=== PATIENT | female | born 1980 | race Caucasian/White ===

== ENCOUNTER 2018-02-15 23:18 | Inpatient (IN) | payer OTHER ==
--- NOTE | 2018-02-16 | Emergency Department Report ---
History of Present Illness - General Chief Complaint: Overdose Stated Complaint: OVERDOSE Time Seen by Provider: 02/15/18 23:49 Source: patient Mode of arrival: Stretcher Limitations: Altered Mental Status - History of Present Illness Initial Comments: 37 yo female brought by EMS to ER. found pt found unresponsive after taking approximately 3/4 bottle of motrin, 3/4 bottle of benadryl, strong odor of alcohol. Superfiicial cuts to left wrist. I spoke with who explained that he and his has had some marital problems over the last few weeks. When he was away from the home, the patient called him to inform him that she overdosed on medications. According to , she does not have a history of depression. She does take medications for migraine headache. Complaint: intentional overdose -: Sudden Intent: unwilling to say How Overdose Was Discovered: family/friend present - Related Data Allergies Allergy/AdvReac Type Severity Reaction Status Date / Time Unable to Assess Allergy Verified 02/15/18 23:35 ED Review of Systems ROS: Stated complaint: OVERDOSE Other details as noted in HPI Comment: Unobtainable due to pts medical conditions ED Past Medical Hx - Past Medical History Additional medical history: unknown - Surgical History Additional Surgical History: unknown - Social History Smoking Status: Unknown if ever smoked ED Physical Exam - General Limitations: Altered Mental Status General appearance: alert, in no apparent distress, other (will make eye contact , nonverbal, ) - Head Head exam: Present: atraumatic, normocephalic - Eye Eye exam: Present: PERRL, EOMI. Absent: scleral icterus, conjunctival injection Pupils: Present: normal accommodation - ENT ENT exam: Present: normal exam - Neck Neck exam: Present: normal inspection - Respiratory Respiratory exam: Present: normal lung sounds bilaterally. Absent: respiratory distress, wheezes, rales - Cardiovascular Cardiovascular Exam: Present: regular rate, normal rhythm, normal heart sounds. Absent: bradycardia, tachycardia - GI/Abdominal GI/Abdominal exam: Present: soft. Absent: distended, tenderness, guarding, rebound - Neurological Exam Neurological exam: Present: alert, other (nonverbal) - Psychiatric Psychiatric exam: Present: flat affect - Skin Skin exam: Present: warm, dry, other (superficial excoriations left wrist, 3 cm superficial laceration deep to subcutaneous tissue) ED Course Vital Signs 02/15/18 02/15/18 02/15/18 23:35 23:37 23:41 Temperature 98.0 F Pulse Rate 91 H 100 H Respiratory 26 H 25 H 14 Rate Blood Pressure 120/78 O2 Sat by Pulse 100 100 100 Oximetry ED Medical Decision Making - Lab Data Result diagrams: 02/15/18 23:45 02/15/18 23:45 Laboratory Results - last 24 hr 02/15/18 02/15/18 02/15/18 23:45 23:45 23:45 WBC RBC Hgb Hct MCV MCH MCHC RDW Plt Count Lymph % (Auto) [place] % (Auto) Eos % (Auto) Baso % (Auto) Lymph # [place] # Eos # Baso # Seg Neutrophils % Seg Neutrophils # Sodium 140 Potassium 3.2 L Chloride 101.9 Carbon Dioxide 24 Anion Gap 17 BUN 9 Creatinine 0.5 L Estimated GFR > 60 BUN/Creatinine Ratio 18 Glucose 173 H Calcium 8.5 HCG, Qual Urine Color Urine Turbidity Urine pH Ur Specific [place] Urine Protein Urine Glucose (UA) Urine Ketones Urine Blood Urine Nitrite Urine Bilirubin Urine Urobilinogen Ur Leukocyte Esterase Urine WBC (Auto) Urine RBC (Auto) U Epithel Cells (Auto) Urine Mucus Salicylates < 0.3 L Urine Opiates Screen Urine Methadone Screen Acetaminophen < 5.0 L Ur Barbiturates Screen Ur Phencyclidine Scrn Ur Amphetamines Screen U Benzodiazepines Scrn Urine Cocaine Screen U Marijuana (THC) Screen Drugs of Abuse Note Plasma/Serum Alcohol 02/15/18 02/15/18 02/15/18 23:45 23:45 23:45 WBC 8.1 RBC 4.15 Hgb 12.5 Hct 37.8 MCV 91 MCH 30 MCHC 33 RDW 14.4 Plt Count 294 Lymph % (Auto) 9.9 L [place] % (Auto) 3.1 Eos % (Auto) 0.2 Baso % (Auto) 0.4 Lymph # 0.8 L [place] # 0.3 Eos # 0.0 Baso # 0.0 Seg Neutrophils % 86.4 H Seg Neutrophils # 7.0 Sodium Potassium Chloride Carbon Dioxide Anion Gap BUN Creatinine Estimated GFR BUN/Creatinine Ratio Glucose Calcium HCG, Qual Negative Urine Color Urine Turbidity Urine pH Ur Specific [place] Urine Protein Urine Glucose (UA) Urine Ketones Urine Blood Urine Nitrite Urine Bilirubin Urine Urobilinogen Ur Leukocyte Esterase Urine WBC (Auto) Urine RBC (Auto) U Epithel Cells (Auto) Urine Mucus Salicylates Urine Opiates Screen Urine Methadone Screen Acetaminophen Ur Barbiturates Screen Ur Phencyclidine Scrn Ur Amphetamines Screen U Benzodiazepines Scrn Urine Cocaine Screen U Marijuana (THC) Screen Drugs of Abuse Note Plasma/Serum Alcohol 0.04 02/15/18 02/15/18 23:47 23:47 WBC RBC Hgb Hct MCV MCH MCHC RDW Plt Count Lymph % (Auto) [place] % (Auto) Eos % (Auto) Baso % (Auto) Lymph # [place] # Eos # Baso # Seg Neutrophils % Seg Neutrophils # Sodium Potassium Chloride Carbon Dioxide Anion Gap BUN Creatinine Estimated GFR BUN/Creatinine Ratio Glucose Calcium HCG, Qual Urine Color Yellow Urine Turbidity Clear Urine pH 6.0 Ur Specific [place] 1.012 Urine Protein <15 mg/dl Urine Glucose (UA) 150 Urine Ketones Neg Urine Blood Neg Urine Nitrite Neg Urine Bilirubin Neg Urine Urobilinogen < 2.0 Ur Leukocyte Esterase Neg Urine WBC (Auto) 1.0 Urine RBC (Auto) 4.0 U Epithel Cells (Auto) < 1.0 Urine Mucus Few Salicylates Urine Opiates Screen Presumptive negative Urine Methadone Screen Presumptive negative Acetaminophen Ur Barbiturates Screen Presumptive negative Ur Phencyclidine Scrn Presumptive negative Ur Amphetamines Screen Presumptive negative U Benzodiazepines Scrn Presumptive negative Urine Cocaine Screen Presumptive negative U Marijuana (THC) Screen Presumptive negative Drugs of Abuse Note Disclamer Plasma/Serum Alcohol - EKG Data 02/16/18 00:12 Time obtained 0007 Sinus tachycardia rate 100 beats a minute normal axis prolonged QT interval no signs of ischemia - Medical Decision Making Intentional Overdose of Motrin, Benadryl I spoke with [place] [facility] who recommended supportive care. Peak effect of Benadryl expected at 4 hours. GI distress and metabolic acidosis are complications of Ibuprofen ingestion. 1013 instituted with appropriate precautions. Superficial laceration did not need suture repair. Nurse provided wound care and bandage. Tetanus booster provided After 3 hours of observation, Mrs. Doyle began exhibit signs of severe diphenhydramine toxicity. She will ambulate with nurse's assistance. She has tachycardia, confabulation. I have asked our hospitalist to admit. She is admitted to the ICU. I also spoke with the marketing research coordinator human services professional. Due to initial altered mental status, patient was unable to tolerate activated charcoal. I will provide chemical restraint with lorazaepam. Cardiac monitoring is necessary with prolonged QTC Critical Care Time: Yes Critical care time in (mins) excluding proc time.: 55 Critical care attestation.: If time is entered above; I have spent that time in minutes in the direct care of this critically ill patient, excluding procedure time. ED Disposition Clinical Impression: Intentional drug overdose, Diphenhydramine overdose, Ibuprofen overdose, Acute encephalopathy Disposition: OP ADMIT IP TO THIS HOSP Is pt being admited?: Yes Does the pt Need Aspirin: No Condition: Stable Time of Disposition: 02:45
[2018-02-16 00:04] LABS: Basophils % (Auto) 0.4 % (0.0-1.8); Eosinophils % (Auto) 0.2 % (0.0-4.3); Hematocrit 37.8 % (30.3-42.9); Hemoglobin 12.5 gm/dl (10.1-14.3); Lymphocytes # (Auto) 0.8 K/mm3 (1.2-5.4); Lymphocytes % (Auto) 9.9 % (13.4-35.0); Mean Corpuscular HGB Conc 33 % (30-34); Mean Corpuscular Hemoglobin 30 pg (28-32); Mean Corpuscular Volume 91 fl (79-97); Monocytes # (Auto) 0.3 K/mm3 (0.0-0.8); Monocytes % (Auto) 3.1 % (0.0-7.3); Platelet Count 294 K/mm3 (140-440); Red Blood Count 4.15 M/mm3 (3.65-5.03); Red Cell Distribution Width 14.4 % (13.2-15.2)
[2018-02-16] MEDS ORDERED: NACL 0.9% 1000 ML 1,000 ML IV ONE (00:04)
[2018-02-16] MEDS ORDERED: BOOSTRIX IM ONE (00:04)
[2018-02-16 00:23] LABS: BUN/Creatinine Ratio 18; Blood Urea Nitrogen 9 mg/dL (7-17); Calcium 8.5 mg/dL (8.4-10.2); Hemolysis Index 2
[2018-02-16 00:31] LABS: Bilirubin,Urine NEG (Negative); Blood,Urine NEG (Negative); Color,Urine Yellow (Yellow); Mucus,Urine FEW /HPF; Protein,Urine <15 mg/dL mg/dL (Negative); Urobilinogen,Urine < 2.0 mg/dL (<2.0)
[2018-02-16 00:40] LABS: Amphetamine Screen,Urine PRESUMPTIVE NEGATIVE; Benzodiazepines Screen,Urine PRESUMPTIVE NEGATIVE; Cannabinoid Screen,Urine PRESUMPTIVE NEGATIVE; Cocaine Screen,Urine PRESUMPTIVE NEGATIVE; Methadone Screen,Urine PRESUMPTIVE NEGATIVE; Opiate Screen,Urine PRESUMPTIVE NEGATIVE
--- NOTE | 2018-02-16 01:26 | Cat Scan Report ---
FINAL REPORT PROCEDURE: CT HEAD/BRAIN WO CON TECHNIQUE: Computerized tomography of the head was performed without contrast material. HISTORY: altered mental status COMPARISON: No prior studies are available for comparison. FINDINGS: Skull and scalp: Normal. Paranasal sinuses: Normal. Ventricles and subarachnoid spaces: Normal. Cerebrum: No evidence of hemorrhage, acute infarction or mass . Cerebellum and brainstem: No evidence of hemorrhage, acute infarction or mass. Vasculature: Normal. Comments: None. IMPRESSION: Normal Examination
[2018-02-16] MEDS ORDERED: TRIPLE ANTIBIOTIC TP ONE ×2 (02:11→02:22)
[2018-02-16] MEDS ORDERED: ATIVAN IV ONE (02:45)
[2018-02-16] MEDS ORDERED: K-DUR PO ONE (03:34)
[2018-02-16] MEDS ORDERED: SODIUM CHLORIDE FLUSH SYRINGE 10 ML IV PRN (03:49)
--- NOTE | 2018-02-16 04:06 | History and Physical Report ---
History of Present Illness Date of examination: 02/16/18 Chief complaint: Patient overdosed on Motrin and Benadryl History of present illness: 37-year-old [id number] Georgian female brought in to the emergency department after she was found unresponsive at home Patient is psychotic, awake and alert, unable to get any history even in the presence of a route rider. Most of the history is obtained from review of ED note. No family member in the room. Patient will be admitted to ICU under 1013 due to intentional drug overdose and her present psychotic condition. Apparently patient does not have any history of depression but has been having marital problems and she intentionally ingested to full bottle of Benadryl and Motrin. Past History Past Medical History: No medical history Past Surgical History: Other (not known) Social history: smoking Family history: other (unable to obtain at this time) Medications and Allergies Allergies Allergy/AdvReac Type Severity Reaction Status Date / Time Unable to Assess Allergy Verified 02/15/18 23:35 Active Meds: Active Medications Heparin Sodium (Porcine) (Heparin) 5,000 unit SUB-Q Q8HR DEVON Dextrose/Sodium Chloride (D5ns) 1,000 mls @ 75 mls/hr IV DIRECT DEVON Pantoprazole Sodium (Protonix) 40 mg PO DAILY DEVON Sodium Chloride (Sodium Chloride Flush Syringe 10 Ml) 10 ml IV BID DEVON Sodium Chloride (Sodium Chloride Flush Syringe 10 Ml) 10 ml IV PRN PRN PRN Reason: LINE FLUSH Review of Systems ROS unobtainable: due to mental status All systems: negative Exam - Constitutional Vitals: Temp Pulse Resp BP Pulse Ox 98.0 F 100 H 14 120/78 100 02/15/18 23:35 02/15/18 23:37 02/15/18 23:41 02/15/18 23:35 02/15/18 23:41 General appearance: Present: no acute distress, well-nourished, other (confused and psychotic) - EENT Eyes: Present: PERRL, EOM intact ENT: hearing intact - Neck Neck: Present: supple, normal ROM. Absent: masses or JVD - Respiratory Respiratory effort: normal Respiratory: bilateral: CTA - Cardiovascular Rhythm: regular Heart Sounds: Present: S1 & S2 - Extremities Extremities: No edema Peripheral Pulses: within normal limits - Abdominal General gastrointestinal: Present: soft, non-tender. Absent: hepatomegaly, splenomegaly - Rectal Rectal Exam: deferred - Integumentary Integumentary: Present: clear - Psychiatric Psychiatric: other (psychotic, poor insight and judgment) - Neurologic Neurologic: no focal deficits, moves all extremities Results - Labs CBC & Chem 7: 02/15/18 23:45 02/15/18 23:45 Labs: Abnormal lab results 02/15/18 02/15/18 02/15/18 Range/Units 23:45 23:45 23:45 Lymph % (Auto) (13.4-35.0) % Lymph # (1.2-5.4) K/mm3 Seg Neutrophils % (40.0-70.0) % Potassium 3.2 L (3.6-5.0) mmol/L Creatinine 0.5 L (0.7-1.2) mg/dL Glucose 173 H (65-100) mg/dL Salicylates < 0.3 L (2.8-20.0) mg/dL Acetaminophen < 5.0 L (10.0-30.0) ug/mL 02/15/18 Range/Units 23:45 Lymph % (Auto) 9.9 L (13.4-35.0) % Lymph # 0.8 L (1.2-5.4) K/mm3 Seg Neutrophils % 86.4 H (40.0-70.0) % Potassium (3.6-5.0) mmol/L Creatinine (0.7-1.2) mg/dL Glucose (65-100) mg/dL Salicylates (2.8-20.0) mg/dL Acetaminophen (10.0-30.0) ug/mL Assessment and Plan - Patient Problems (1) Intentional drug overdose Current Visit: Yes Status: Acute Qualifiers: Encounter type: initial encounter Qualified Code(s): T50.902A - Poisoning by unspecified drugs, medicaments and biological substances, intentional self- harm, initial encounter Plan to address problem: Intentional overdose with Benadryl and Motrin Supportive care mental health consult Patient is under 1013 (2) Hypokalemia Current Visit: Yes Status: Acute Plan to address problem: Potassium supplements and monitor serum electrolytes (3) Hyperglycemia Current Visit: Yes Status: Acute Plan to address problem: There is no history of diabetes Will check A1c Start on Accu-Cheks before meals and at bedtime if A1c is abnormal (4) Acute encephalopathy Current Visit: Yes Status: Acute Plan to address problem: 2/2 Delirium Secondary to overdose of Benadryl and Motrin Supportive care and close monitoring in ICU setting
[2018-02-16] MEDS: D5NS 1,000 ML IV SCH (06:06)
[2018-02-16] MEDS: HEPARIN SUB-Q SCH ×3 (06:08→22:59)
--- NOTE | 2018-02-16 10:09 | Consultation ---
History of Present Illness - Reason for Consult Consult date: 02/16/18 Overdose, Suicide Attempt Requesting physician: KLEBER ORELLANA - History of Present Illness 37 y/o [place]an female, non ukrainian speaking admitted via the Ed after being found unresponsive. Patient intentionally ingested an unknown amount of benadryl and motrin. Per the who speaks some Bruneian as the bedside, this was an intentional attempt to harm herself. They have been having marital problems for about 1 week. She has never done this before. In the ED, she was hostile and combative, confused at times. She was tachycardic but other vitals were stable. Transitioned to ICU for further monitoring. She is a 1013. Past History Past Medical History: No medical history, other (per chart, some depression) Past Surgical History: No surgical history, Other (not known) Social history: smoking Medications and Allergies Allergies Allergy/AdvReac Type Severity Reaction Status Date / Time Unable to Assess Allergy Verified 02/15/18 23:35 Active Meds: Active Medications Heparin Sodium (Porcine) (Heparin) 5,000 unit SUB-Q Q8HR DEVON Last Admin: 02/16/18 06:08 Dose: 5,000 unit Dextrose/Sodium Chloride (D5ns) 1,000 mls @ 75 mls/hr IV DIRECT DEVON Last Admin: 02/16/18 06:06 Dose: 75 mls/hr Pantoprazole Sodium (Protonix) 40 mg PO DAILY DEVON Sodium Chloride (Sodium Chloride Flush Syringe 10 Ml) 10 ml IV BID DEVON Sodium Chloride (Sodium Chloride Flush Syringe 10 Ml) 10 ml IV PRN PRN PRN Reason: LINE FLUSH Review of Systems All systems: negative Exam - Constitutional Vitals: Temp Pulse Resp BP Pulse Ox 98.0 F 87 23 112/73 96 02/16/18 08:00 02/16/18 09:21 02/16/18 09:21 02/16/18 09:21 02/16/18 07:31 General appearance: Present: no acute distress, well-nourished - EENT Eyes: Present: PERRL, EOM intact ENT: hearing intact, clear oral mucosa - Neck Neck: Present: supple, normal ROM - Respiratory Respiratory effort: normal Respiratory: bilateral: CTA - Cardiovascular Rhythm: regular Heart Sounds: Present: S1 & S2 - Extremities Extremities: no ischemia - Abdominal General gastrointestinal: Present: soft, non-tender, normal bowel sounds Female genitourinary: Present: deferred - Rectal Rectal Exam: deferred - Integumentary Integumentary: Present: clear, warm, dry - Musculoskeletal Musculoskeletal: strength equal bilaterally - Neurologic Neurologic: CNII-XII intact Results - Labs CBC & Chem 7: 02/15/18 23:45 02/15/18 23:45 Labs: Abnormal lab results 02/15/18 02/15/18 02/15/18 Range/Units 23:45 23:45 23:45 Lymph % (Auto) (13.4-35.0) % Lymph # (1.2-5.4) K/mm3 Seg Neutrophils % (40.0-70.0) % Potassium 3.2 L (3.6-5.0) mmol/L Creatinine 0.5 L (0.7-1.2) mg/dL Glucose 173 H (65-100) mg/dL Salicylates < 0.3 L (2.8-20.0) mg/dL Acetaminophen < 5.0 L (10.0-30.0) ug/mL 02/15/18 Range/Units 23:45 Lymph % (Auto) 9.9 L (13.4-35.0) % Lymph # 0.8 L (1.2-5.4) K/mm3 Seg Neutrophils % 86.4 H (40.0-70.0) % Potassium (3.6-5.0) mmol/L Creatinine (0.7-1.2) mg/dL Glucose (65-100) mg/dL Salicylates (2.8-20.0) mg/dL Acetaminophen (10.0-30.0) ug/mL - Imaging and Cardiology CT Scan - head: report reviewed Assessment and Plan 37 y/o female admitted with suicide attempt from overdosing on benadryl and motrin. 1. IV hydration 2. Agree with 1013 3. Psych consult with language line 4. Monitor electrolytes and replace as needed 5. Can likely transfer to floor with tele. Benadryl has a long half variable half-life, without knowing the strength and the amount, tough to determine when she may clear it. All other labs or normal so should metabolize normally. Given cardiac effects, suggest telemetry monitoring while on floor with sitter close. 6. IF QTc is normal, would use antipsychotics for agitation and not benzo therapy.
[2018-02-16 11:03] LABS: BUN/Creatinine Ratio 13; Blood Urea Nitrogen 5 mg/dL (7-17); Calcium 8.5 mg/dL (8.4-10.2); Hemolysis Index 4
[2018-02-16] MEDS: PROTONIX PO SCH (12:00)
[2018-02-16] MEDS: SODIUM CHLORIDE FLUSH SYRINGE 10 ML IV SCH ×2 (14:34→22:59)
--- NOTE | 2018-02-16 20:00 | Progress Note ---
Assessment and Plan Assessment and plan: 37-year-old [id number] Bel[place]ian female brought in to the emergency department after she was found unresponsive at home Patient is psychotic, awake and alert, unable to get any history even in the presence of a teaching artist. Most of the history is obtained from review of ED note. No family member in the room. Patient will be admitted to ICU under 1013 due to intentional drug overdose and her present psychotic condition. Apparently patient does not have any history of depression but has been having marital problems and she intentionally ingested to full bottle of Benadryl and Motrin. Past History Past Medical History: No medical history Intentional drug overdose/ suicide attempt mental health consult Patient is under 1013 Hypokalemia, repleted Hyperglycemia due to stress reaction, a1c 5.6, DM ruled out Acute Toxic encephalopathy due to drug OD, now resolved major depression meds per MH Patient is medically optimized for transfer to inpatient psych hospital. History Interval history: Review of systems Constitutional: No fevers, no malaise, no joint pains CVS: No chest pain, no orthopnea, no dyspnea on exertion, no pedal edema GI: No abdominal pain, no diarrhea, no vomiting, no constipation Respiratory: No shortness of breath, no wheezing, no coughing Hospitalist Physical - Physical exam Narrative exam: General.: Appears well, no distress, nontoxic HEENT: Moist mucous membranes, extraocular muscles intact, no lymphadenopathy Neck: supple Cardiac: S1-S2 heard Lungs: clear to auscultation bilaterally Abdomen: soft , nontender, nondistended, bowel sounds positive Extremities: no edema clubbing or cyanosis Skin: no rash or lesions Neurologic: no gross focal deficits Psych: appropriate behavior, appropriate mood, corporative, judgment intact - Constitutional Vitals: Temp Pulse Resp BP Pulse Ox 98.6 F 76 21 109/71 99 02/16/18 16:00 02/16/18 15:11 02/16/18 19:34 02/16/18 19:34 02/16/18 19:34 General appearance: Present: no acute distress, well-nourished Results - Labs CBC & Chem 7: 02/17/18 07:59 02/17/18 07:59 Labs: Laboratory Last Values WBC 8.1 K/mm3 (4.5-11.0) 02/15/18 23:45 RBC 4.15 M/mm3 (3.65-5.03) 02/15/18 23:45 Hgb 12.5 gm/dl (10.1-14.3) 02/15/18 23:45 Hct 37.8 % (30.3-42.9) 02/15/18 23:45 MCV 91 fl (79-97) 02/15/18 23:45 MCH 30 pg (28-32) 02/15/18 23:45 MCHC 33 % (30-34) 02/15/18 23:45 RDW 14.4 % (13.2-15.2) 02/15/18 23:45 Plt Count 294 K/mm3 (140-440) 02/15/18 23:45 Lymph % (Auto) 9.9 % (13.4-35.0) L 02/15/18 23:45 Clinch % (Auto) 3.1 % (0.0-7.3) 02/15/18 23:45 Eos % (Auto) 0.2 % (0.0-4.3) 02/15/18 23:45 Baso % (Auto) 0.4 % (0.0-1.8) 02/15/18 23:45 Lymph # 0.8 K/mm3 (1.2-5.4) L 02/15/18 23:45 Clinch # 0.3 K/mm3 (0.0-0.8) 02/15/18 23:45 Eos # 0.0 K/mm3 (0.0-0.4) 02/15/18 23:45 Baso # 0.0 K/mm3 (0.0-0.1) 02/15/18 23:45 Seg Neutrophils % 86.4 % (40.0-70.0) H 02/15/18 23:45 Seg Neutrophils # 7.0 K/mm3 (1.8-7.7) 02/15/18 23:45 Sodium 145 mmol/L (137-145) 02/16/18 10:19 Potassium 3.8 mmol/L (3.6-5.0) 02/16/18 10:19 Chloride 105.5 mmol/L (98-107) 02/16/18 10:19 Carbon Dioxide 23 mmol/L (22-30) 02/16/18 10:19 Anion Gap 20 mmol/L 02/16/18 10:19 BUN 5 mg/dL (7-17) L 02/16/18 10:19 Creatinine 0.4 mg/dL (0.7-1.2) L 02/16/18 10:19 Estimated GFR > 60 ml/min 02/16/18 10:19 BUN/Creatinine Ratio 13 % 02/16/18 10:19 Glucose 94 mg/dL (65-100) 02/16/18 10:19 Hemoglobin A1c 5.6 % (4-6) 02/16/18 10:19 Calcium 8.5 mg/dL (8.4-10.2) 02/16/18 10:19 HCG, Qual Negative (Negative) 02/15/18 23:45 Urine Color Yellow (Yellow) 02/15/18 23:47 Urine Turbidity Clear (Clear) 02/15/18 23:47 Urine pH 6.0 (5.0-7.0) 02/15/18 23:47 Ur Specific [place] 1.012 (1.003-1.030) 02/15/18 23:47 Urine Protein <15 mg/dl mg/dL (Negative) 02/15/18 23:47 Urine Glucose (UA) 150 mg/dL (Negative) 02/15/18 23:47 Urine Ketones Neg mg/dL (Negative) 02/15/18 23:47 Urine Blood Neg (Negative) 02/15/18 23:47 Urine Nitrite Neg (Negative) 02/15/18 23:47 Urine Bilirubin Neg (Negative) 02/15/18 23:47 Urine Urobilinogen < 2.0 mg/dL (<2.0) 02/15/18 23:47 Ur Leukocyte Esterase Neg (Negative) 02/15/18 23:47 Urine WBC (Auto) 1.0 /HPF (0.0-6.0) 02/15/18 23:47 Urine RBC (Auto) 4.0 /HPF (0.0-6.0) 02/15/18 23:47 U Epithel Cells (Auto) < 1.0 /HPF (0-13.0) 02/15/18 23:47 Urine Mucus Few /HPF 02/15/18 23:47 Salicylates < 0.3 mg/dL (2.8-20.0) L 02/15/18 23:45 Urine Opiates Screen Presumptive negative 02/15/18 23:47 Urine Methadone Screen Presumptive negative 02/15/18 23:47 Acetaminophen < 5.0 ug/mL (10.0-30.0) L 02/15/18 23:45 Ur Barbiturates Screen Presumptive negative 02/15/18 23:47 Ur Phencyclidine Scrn Presumptive negative 02/15/18 23:47 Ur Amphetamines Screen Presumptive negative 02/15/18 23:47 U Benzodiazepines Scrn Presumptive negative 02/15/18 23:47 Urine Cocaine Screen Presumptive negative 02/15/18 23:47 U Marijuana (THC) Screen Presumptive negative 02/15/18 23:47 Drugs of Abuse Note Disclamer 02/15/18 23:47 Plasma/Serum Alcohol 0.04 % (0-0.07) 02/15/18 23:45
--- NOTE | 2018-02-16 23:10 | Consultation ---
History of Present Illness - Reason for Consult Consult date: 02/16/18 Reason for consult: overdose - Chief Complaint Chief complaint: "I took a lot of pills." - History of Present Psychiatric Illness 37 yo [place] female seen in the ICU. The language line was used with full time staff interpreter number [id number]. Her was not present during the interview. Per the record, her found her found unresponsive after taking approximately 3/4 bottle of motrin, 3/4 bottle of benadryl, and strong odor of alcohol. She also has superficial cuts to left wrist which did not require suturing. She reports that 3 weeks ago, her cheated on her with her best friend. She states they have been arguing since then. She does not have family in the [place]. She speaks minimal sri lankan. Her 13 and 14 year old children are in [place] with her mother. She denies a history of any mental health diagnosis. She states she has never been on meds for mental health. She mentioned hesitancy about going to a counselor. She states she was told to see a psychologist because of her past, but she does not want to discuss anything in further detail. She admits to the suicide attempt. She denies homicidal ideation. She denies hallucinations currently, but was exhibiting signs of visual hallucinations following the overdose. Poison control has been involved in her care. Medications and Allergies Allergies Allergy/AdvReac Type Severity Reaction Status Date / Time Unable to Assess Allergy Verified 02/15/18 23:35 Active Meds: Active Medications Heparin Sodium (Porcine) (Heparin) 5,000 unit SUB-Q Q8HR DEVON Last Admin: 02/16/18 22:59 Dose: 5,000 unit Dextrose/Sodium Chloride (D5ns) 1,000 mls @ 75 mls/hr IV DIRECT [facility] Last Admin: 02/16/18 06:06 Dose: 75 mls/hr Pantoprazole Sodium (Protonix) 40 mg PO DAILY DEVON Last Admin: 02/16/18 12:00 Dose: 40 mg Sodium Chloride (Sodium Chloride Flush Syringe 10 Ml) 10 ml IV BID DEVON Last Admin: 02/16/18 22:59 Dose: 10 ml Sodium Chloride (Sodium Chloride Flush Syringe 10 Ml) 10 ml IV PRN PRN PRN Reason: LINE FLUSH Past psychiatric history - Past Medical History Past Medical History: migraines - past Psychiatric treatment and history psychiatric treatment history: see HPI denies hospitalizations - Social History Social history: , other (denies regular alcohol use. denies illicit substance use) Mental Status Exam - Vital signs Last Vital Signs Temp 98.6 F 02/16/18 16:00 Pulse 77 02/16/18 20:01 Resp 21 02/16/18 20:01 BP 109/71 02/16/18 20:01 Pulse Ox 99 02/16/18 20:01 - Exam Orientation: time, place, person Affect: flat Mood: calm Thought content: other (recent suicide attempt. no HI) Thought Process: Intact Perceptions: none Speech: normal rate and pattern Concentration: focused Motor activity: normal Level of consciousness: alert Memory: Intact Sleep Symptoms: None Appetite: decreased Interaction: cooperative Results Result Diagrams: 02/15/18 23:45 02/16/18 10:19 Abnormal lab results 02/15/18 02/15/18 02/15/18 Range/Units 23:45 23:45 23:45 Lymph % (Auto) (13.4-35.0) % Lymph # (1.2-5.4) K/mm3 Seg Neutrophils % (40.0-70.0) % Potassium 3.2 L (3.6-5.0) mmol/L BUN (7-17) mg/dL Creatinine 0.5 L (0.7-1.2) mg/dL Glucose 173 H (65-100) mg/dL Salicylates < 0.3 L (2.8-20.0) mg/dL Acetaminophen < 5.0 L (10.0-30.0) ug/mL 02/15/18 02/16/18 Range/Units 23:45 10:19 Lymph % (Auto) 9.9 L (13.4-35.0) % Lymph # 0.8 L (1.2-5.4) K/mm3 Seg Neutrophils % 86.4 H (40.0-70.0) % Potassium (3.6-5.0) mmol/L BUN 5 L (7-17) mg/dL Creatinine 0.4 L (0.7-1.2) mg/dL Glucose (65-100) mg/dL Salicylates (2.8-20.0) mg/dL Acetaminophen (10.0-30.0) ug/mL All other labs normal. Assessment and Plan Assessment and plan: Impression: suicide attempt with ingestion of benadryl and ibuprofen. Suicide attempt related to recent acute psychosocial stressor ( cheated with her best friend). r/o PTSD r/o MDD. She has minimal support in the [place]. Family is in [place]. She does allow staff to speak with her . Although, he should not be used as her full time staff interpreter given the situation. r/o intimate partner violence Recommendation: 1013 and plan for inpatient hospitalization when medically cleared. This was explained to her. Plan to further assess for signs of MDD and PTSD.
[2018-02-17] MEDS: HEPARIN SUB-Q SCH ×3 (06:27→22:45)
[2018-02-17] MEDS: D5NS 1,000 ML IV SCH (07:36)
--- NOTE | 2018-02-17 08:25 | Progress Note ---
Assessment and Plan Assessment and plan: 37-year-old dyd-Nksvafh-dvyqdfqv Chadian female brought in to the emergency department after she was found unresponsive at home Patient is psychotic, awake and alert, unable to get any history even in the presence of a manager insurance. Most of the history is obtained from review of ED note. No family member in the room. Patient will be admitted to ICU under 1013 due to intentional drug overdose and her present psychotic condition. Apparently patient does not have any history of depression but has been having marital problems and she intentionally ingested to full bottle of Benadryl and Motrin. Past History Past Medical History: No medical history Intentional drug overdose/ suicide attempt mental health consult Patient is under 1013 Hypokalemia, repleted Hyperglycemia due to stress reaction, a1c 5.6, DM ruled out Acute Toxic encephalopathy due to drug OD, now resolved major depression meds per MH Patient is medically optimized for transfer to inpatient psych hospital. History Interval history: Review of systems Constitutional: No fevers, no malaise, no joint pains CVS: No chest pain, no orthopnea, no dyspnea on exertion, no pedal edema GI: No abdominal pain, no diarrhea, no vomiting, no constipation Respiratory: No shortness of breath, no wheezing, no coughing Hospitalist Physical - Physical exam Narrative exam: General.: Appears well, no distress, nontoxic HEENT: Moist mucous membranes, extraocular muscles intact, no lymphadenopathy Neck: supple Cardiac: S1-S2 heard Lungs: clear to auscultation bilaterally Abdomen: soft , nontender, nondistended, bowel sounds positive Extremities: no edema clubbing or cyanosis Skin: no rash or lesions Neurologic: no gross focal deficits Psych: appropriate behavior, appropriate mood, corporative, judgment intact - Constitutional Vitals: Temp Pulse Resp BP Pulse Ox 98.6 F 64 17 104/61 100 02/17/18 07:00 02/17/18 07:00 02/16/18 22:00 02/17/18 07:00 02/16/18 21:21 General appearance: Present: no acute distress, well-nourished Results - Labs CBC & Chem 7: 02/17/18 07:59 02/17/18 07:59 Labs: Laboratory Last Values WBC 8.1 K/mm3 (4.5-11.0) 02/15/18 23:45 RBC 4.15 M/mm3 (3.65-5.03) 02/15/18 23:45 Hgb 12.5 gm/dl (10.1-14.3) 02/15/18 23:45 Hct 37.8 % (30.3-42.9) 02/15/18 23:45 MCV 91 fl (79-97) 02/15/18 23:45 MCH 30 pg (28-32) 02/15/18 23:45 MCHC 33 % (30-34) 02/15/18 23:45 RDW 14.4 % (13.2-15.2) 02/15/18 23:45 Plt Count 294 K/mm3 (140-440) 02/15/18 23:45 Lymph % (Auto) 9.9 % (13.4-35.0) L 02/15/18 23:45 [place] % (Auto) 3.1 % (0.0-7.3) 02/15/18 23:45 Eos % (Auto) 0.2 % (0.0-4.3) 02/15/18 23:45 Baso % (Auto) 0.4 % (0.0-1.8) 02/15/18 23:45 Lymph # 0.8 K/mm3 (1.2-5.4) L 02/15/18 23:45 [place] # 0.3 K/mm3 (0.0-0.8) 02/15/18 23:45 Eos # 0.0 K/mm3 (0.0-0.4) 02/15/18 23:45 Baso # 0.0 K/mm3 (0.0-0.1) 02/15/18 23:45 Seg Neutrophils % 86.4 % (40.0-70.0) H 02/15/18 23:45 Seg Neutrophils # 7.0 K/mm3 (1.8-7.7) 02/15/18 23:45 Sodium 145 mmol/L (137-145) 02/16/18 10:19 Potassium 3.8 mmol/L (3.6-5.0) 02/16/18 10:19 Chloride 105.5 mmol/L (98-107) 02/16/18 10:19 Carbon Dioxide 23 mmol/L (22-30) 02/16/18 10:19 Anion Gap 20 mmol/L 02/16/18 10:19 BUN 5 mg/dL (7-17) L 02/16/18 10:19 Creatinine 0.4 mg/dL (0.7-1.2) L 02/16/18 10:19 Estimated GFR > 60 ml/min 02/16/18 10:19 BUN/Creatinine Ratio 13 % 02/16/18 10:19 Glucose 94 mg/dL (65-100) 02/16/18 10:19 Hemoglobin A1c 5.6 % (4-6) 02/16/18 10:19 Calcium 8.5 mg/dL (8.4-10.2) 02/16/18 10:19 HCG, Qual Negative (Negative) 02/15/18 23:45 Urine Color Yellow (Yellow) 02/15/18 23:47 Urine Turbidity Clear (Clear) 02/15/18 23:47 Urine pH 6.0 (5.0-7.0) 02/15/18 23:47 Ur Specific [place] 1.012 (1.003-1.030) 02/15/18 23:47 Urine Protein <15 mg/dl mg/dL (Negative) 02/15/18 23:47 Urine Glucose (UA) 150 mg/dL (Negative) 02/15/18 23:47 Urine Ketones Neg mg/dL (Negative) 02/15/18 23:47 Urine Blood Neg (Negative) 02/15/18 23:47 Urine Nitrite Neg (Negative) 02/15/18 23:47 Urine Bilirubin Neg (Negative) 02/15/18 23:47 Urine Urobilinogen < 2.0 mg/dL (<2.0) 02/15/18 23:47 Ur Leukocyte Esterase Neg (Negative) 02/15/18 23:47 Urine WBC (Auto) 1.0 /HPF (0.0-6.0) 02/15/18 23:47 Urine RBC (Auto) 4.0 /HPF (0.0-6.0) 02/15/18 23:47 U Epithel Cells (Auto) < 1.0 /HPF (0-13.0) 02/15/18 23:47 Urine Mucus Few /HPF 02/15/18 23:47 Salicylates < 0.3 mg/dL (2.8-20.0) L 02/15/18 23:45 Urine Opiates Screen Presumptive negative 02/15/18 23:47 Urine Methadone Screen Presumptive negative 02/15/18 23:47 Acetaminophen < 5.0 ug/mL (10.0-30.0) L 02/15/18 23:45 Ur Barbiturates Screen Presumptive negative 02/15/18 23:47 Ur Phencyclidine Scrn Presumptive negative 02/15/18 23:47 Ur Amphetamines Screen Presumptive negative 02/15/18 23:47 U Benzodiazepines Scrn Presumptive negative 02/15/18 23:47 Urine Cocaine Screen Presumptive negative 02/15/18 23:47 U Marijuana (THC) Screen Presumptive negative 02/15/18 23:47 Drugs of Abuse Note Disclamer 02/15/18 23:47 Plasma/Serum Alcohol 0.04 % (0-0.07) 02/15/18 23:45
[2018-02-17 08:38] LABS: BUN/Creatinine Ratio 20; Basophils # (Auto) 0.1 K/mm3 (0.0-0.1); Basophils % (Auto) 0.8 % (0.0-1.8); Blood Urea Nitrogen 8 mg/dL (7-17); Calcium 8.2 mg/dL (8.4-10.2); Eosinophils # (Auto) 0.1 K/mm3 (0.0-0.4); Eosinophils % (Auto) 1.6 % (0.0-4.3); Hemoglobin 11.4 gm/dl (10.1-14.3); Hemolysis Index 8; Lymphocytes # (Auto) 2.1 K/mm3 (1.2-5.4); Lymphocytes % (Auto) 30.1 % (13.4-35.0); Mean Corpuscular HGB Conc 33 % (30-34); Mean Corpuscular Hemoglobin 30 pg (28-32); Mean Corpuscular Volume 92 fl (79-97); Monocytes # (Auto) 0.5 K/mm3 (0.0-0.8); Monocytes % (Auto) 6.7 % (0.0-7.3); Platelet Count 260 K/mm3 (140-440); Red Blood Count 3.81 M/mm3 (3.65-5.03); Red Cell Distribution Width 14.8 % (13.2-15.2)
[2018-02-17] MEDS: PROTONIX PO SCH (10:37)
[2018-02-17] MEDS: SODIUM CHLORIDE FLUSH SYRINGE 10 ML IV SCH ×2 (10:37→22:45)
--- NOTE | 2018-02-17 19:39 | Progress Note ---
Subjective - Reason for Consult Consult date: 02/17/18 Reason for consult: follow up - Chief Complaint Chief complaint: "I am feeling calm today." 37 yo [place]gu[place] female seen on the medical floor. The language line was used with switch coupler number [id number]. Her was not present during the interview. He was asked to leave the room and complied. Per the record, her found her found unresponsive after taking approximately 3/4 bottle of motrin, 3/4 bottle of benadryl, and strong odor of alcohol. She also has superficial cuts to left wrist which did not require suturing. She reports that 3 weeks ago, her cheated on her with her best friend. She states they have been arguing since then. She states she does have family in the area but does not want them to know about her stay. She speaks some bulgarian and prefers using the language line. Her 13 and 14 year old children are in [place] with her mother for the summer. She denies a history of any mental health diagnosis. She states she has never been on meds for mental health. She mentioned hesitancy about going to a counselor. She states she was told to see a psychologist because of her past, but she does not want to discuss anything in further detail. She admits to the suicide attempt. She denies homicidal ideation. She states she feels a little tired but otherwise is well physically. She states she is eating and sleeping well. She denies current suicidal ideation. She states she would like to go home but is aware the plan is for her to go to a psychiatric hospital. She denies intimate partner violence. Mental Status Exam - Vital signs Last Vital Signs Temp 97.8 F 02/17/18 17:58 Pulse 75 02/17/18 17:58 Resp 18 02/17/18 17:58 BP 96/56 02/17/18 17:58 Pulse Ox 99 02/17/18 17:58 - Exam Narrative exam: Orientation: time, place, person Affect: appropriate Mood: calm Thought content: other (recent suicide attempt. no HI) Thought Process: Intact Perceptions: none Speech: normal rate and pattern Concentration: focused Motor activity: normal Level of consciousness: alert Memory: Intact Sleep Symptoms: None Appetite: "good" Interaction: cooperative Assessment and Plan Impression: suicide attempt with ingestion of benadryl and ibuprofen. Suicide attempt related to recent acute psychosocial stressor ( cheated with her best friend). r/o PTSD r/o MDD. Her children visiting their grandmother in [place] and will return in 3 weeks. She has family in the area but does not want them to know what has happened. She does allow staff to speak with her . Although, he should not be used as her switch coupler given the situation. Recommendation: 1013 and plan for inpatient hospitalization when medically cleared. This was explained to her. Plan to further assess for signs of MDD and PTSD.
[2018-02-18] MEDS: HEPARIN SUB-Q SCH ×3 (05:53→22:03)
--- NOTE | 2018-02-18 07:41 | Progress Note ---
Assessment and Plan Assessment and plan: 37-year-old eye-Lmenlkn-mucjhbyt [place]ian female brought in to the emergency department after she was found unresponsive at home Patient is psychotic, awake and alert, unable to get any history even in the presence of a dough catcher. Most of the history is obtained from review of ED note. No family member in the room. Patient will be admitted to ICU under 1013 due to intentional drug overdose and her present psychotic condition. Apparently patient does not have any history of depression but has been having marital problems and she intentionally ingested to full bottle of Benadryl and Motrin. Past History Past Medical History: No medical history Intentional drug overdose/ suicide attempt mental health consult Patient is under 1013 Hypokalemia, repleted Hyperglycemia due to stress reaction, a1c 5.6, DM ruled out Acute Toxic encephalopathy due to drug OD, now resolved major depression meds per MH Patient is medically optimized for transfer to inpatient psych hospital. History Interval history: Review of systems Constitutional: No fevers, no malaise, no joint pains CVS: No chest pain, no orthopnea, no dyspnea on exertion, no pedal edema GI: No abdominal pain, no diarrhea, no vomiting, no constipation Respiratory: No shortness of breath, no wheezing, no coughing Hospitalist Physical - Physical exam Narrative exam: General.: Appears well, no distress, nontoxic HEENT: Moist mucous membranes, extraocular muscles intact, no lymphadenopathy Neck: supple Cardiac: S1-S2 heard Lungs: clear to auscultation bilaterally Abdomen: soft , nontender, nondistended, bowel sounds positive Extremities: no edema clubbing or cyanosis Skin: no rash or lesions Neurologic: no gross focal deficits Psych: appropriate behavior, appropriate mood, corporative, judgment intact - Constitutional Vitals: Temp Pulse Resp BP Pulse Ox 98.4 F 67 18 99/63 97 02/18/18 06:39 02/18/18 06:39 02/18/18 06:39 02/18/18 06:39 02/18/18 06:39 General appearance: Present: no acute distress, well-nourished Results - Labs CBC & Chem 7: 02/17/18 07:59 02/17/18 07:59 Labs: Laboratory Last Values WBC 6.9 K/mm3 (4.5-11.0) 02/17/18 07:59 RBC 3.81 M/mm3 (3.65-5.03) 02/17/18 07:59 Hgb 11.4 gm/dl (10.1-14.3) 02/17/18 07:59 Hct 35.0 % (30.3-42.9) 02/17/18 07:59 MCV 92 fl (79-97) 02/17/18 07:59 MCH 30 pg (28-32) 02/17/18 07:59 MCHC 33 % (30-34) 02/17/18 07:59 RDW 14.8 % (13.2-15.2) 02/17/18 07:59 Plt Count 260 K/mm3 (140-440) 02/17/18 07:59 Lymph % (Auto) 30.1 % (13.4-35.0) 02/17/18 07:59 [place] % (Auto) 6.7 % (0.0-7.3) 02/17/18 07:59 Eos % (Auto) 1.6 % (0.0-4.3) 02/17/18 07:59 Baso % (Auto) 0.8 % (0.0-1.8) 02/17/18 07:59 Lymph # 2.1 K/mm3 (1.2-5.4) 02/17/18 07:59 [place] # 0.5 K/mm3 (0.0-0.8) 02/17/18 07:59 Eos # 0.1 K/mm3 (0.0-0.4) 02/17/18 07:59 Baso # 0.1 K/mm3 (0.0-0.1) 02/17/18 07:59 Seg Neutrophils % 60.8 % (40.0-70.0) 02/17/18 07:59 Seg Neutrophils # 4.2 K/mm3 (1.8-7.7) 02/17/18 07:59 Sodium 142 mmol/L (137-145) 02/17/18 07:59 Potassium 3.5 mmol/L (3.6-5.0) L 02/17/18 07:59 Chloride 108.3 mmol/L (98-107) H 02/17/18 07:59 Carbon Dioxide 24 mmol/L (22-30) 02/17/18 07:59 Anion Gap 13 mmol/L 02/17/18 07:59 BUN 8 mg/dL (7-17) 02/17/18 07:59 Creatinine 0.4 mg/dL (0.7-1.2) L 02/17/18 07:59 Estimated GFR > 60 ml/min 02/17/18 07:59 BUN/Creatinine Ratio 20 % 02/17/18 07:59 Glucose 96 mg/dL (65-100) 02/17/18 07:59 Hemoglobin A1c 5.6 % (4-6) 02/16/18 10:19 Calcium 8.2 mg/dL (8.4-10.2) L 02/17/18 07:59 HCG, Qual Negative (Negative) 02/15/18 23:45 Urine Color Yellow (Yellow) 02/15/18 23:47 Urine Turbidity Clear (Clear) 02/15/18 23:47 Urine pH 6.0 (5.0-7.0) 02/15/18 23:47 Ur Specific [place] 1.012 (1.003-1.030) 02/15/18 23:47 Urine Protein <15 mg/dl mg/dL (Negative) 02/15/18 23:47 Urine Glucose (UA) 150 mg/dL (Negative) 02/15/18 23:47 Urine Ketones Neg mg/dL (Negative) 02/15/18 23:47 Urine Blood Neg (Negative) 02/15/18 23:47 Urine Nitrite Neg (Negative) 02/15/18 23:47 Urine Bilirubin Neg (Negative) 02/15/18 23:47 Urine Urobilinogen < 2.0 mg/dL (<2.0) 02/15/18 23:47 Ur Leukocyte Esterase Neg (Negative) 02/15/18 23:47 Urine WBC (Auto) 1.0 /HPF (0.0-6.0) 02/15/18 23:47 Urine RBC (Auto) 4.0 /HPF (0.0-6.0) 02/15/18 23:47 U Epithel Cells (Auto) < 1.0 /HPF (0-13.0) 02/15/18 23:47 Urine Mucus Few /HPF 02/15/18 23:47 Salicylates < 0.3 mg/dL (2.8-20.0) L 02/15/18 23:45 Urine Opiates Screen Presumptive negative 02/15/18 23:47 Urine Methadone Screen Presumptive negative 02/15/18 23:47 Acetaminophen < 5.0 ug/mL (10.0-30.0) L 02/15/18 23:45 Ur Barbiturates Screen Presumptive negative 02/15/18 23:47 Ur Phencyclidine Scrn Presumptive negative 02/15/18 23:47 Ur Amphetamines Screen Presumptive negative 02/15/18 23:47 U Benzodiazepines Scrn Presumptive negative 02/15/18 23:47 Urine Cocaine Screen Presumptive negative 02/15/18 23:47 U Marijuana (THC) Screen Presumptive negative 02/15/18 23:47 Drugs of Abuse Note Disclamer 02/15/18 23:47 Plasma/Serum Alcohol 0.04 % (0-0.07) 02/15/18 23:45
[2018-02-18] MEDS ORDERED: FIORICET PO PRN (08:34)
[2018-02-18] MEDS: PROTONIX PO SCH (09:39)
[2018-02-18] MEDS: SODIUM CHLORIDE FLUSH SYRINGE 10 ML IV SCH ×2 (13:26→22:04)
[2018-02-19] MEDS: HEPARIN SUB-Q SCH ×3 (06:39→21:49)
[2018-02-19] MEDS: PROTONIX PO SCH (10:07)
[2018-02-19] MEDS: SODIUM CHLORIDE FLUSH SYRINGE 10 ML IV SCH ×2 (10:07→21:49)
--- NOTE | 2018-02-19 13:26 | Progress Note ---
Subjective - Reason for Consult Consult date: 02/19/18 Reason for consult: Psychiatry Follow-up - Chief Complaint Chief complaint: "How are you" 37 yo female presenting to the hospital for overdosing on Ibuprofen and benadryl. The language line (melt room operator# [id number]) was used to interview the patient. Today the patient is calm and cooperative during the assessment. She stated feeling sad and hopeless for several months prior to her suicide attempt. She stated not being in a good place "mentally" when she ingested the medications (ibuprofen/benadryl). She stated that she is willing to take a "pill " for depression if it's needed. Per the sitter, the patient's had just left her room prior to my arrival. Also, the patient stated that she is communicating with about their marital issues. She denies SI/HI's and AVH's. Mental Status Exam - Vital signs Last Vital Signs Temp 97.5 F L 02/19/18 06:40 Pulse 67 02/19/18 06:40 Resp 16 02/19/18 06:40 BP 95/54 02/19/18 06:40 Pulse Ox 97 02/19/18 06:40 - Exam Narrative exam: MSE: Appearance: calm, cooperative Behavior: regular eye contact Speech: regular rate and tone Mood: "okay" Affect: congruent to mood Thought Process: circumstantial Thought Content: denies SI/HI's and AVH's Motor Activity: ambulatory Cognition: A/O x 3 Insight: fair Judgment: fair Assessment and Plan Impression: MDD, Severe Type. Today the patient is calm and cooperative during the assessment. DDx: R/O PTSD Recommendation/Plan: Continue 1013 with placement to inpatient psy services. Start Zoloft 25 mg PO daily for depression. Discussed possible sucidality/ medication induced bowen with patient reference Zoloft.
[2018-02-19] MEDS: ZOLOFT PO SCH (14:00)
--- NOTE | 2018-02-19 15:38 | Progress Note ---
Assessment and Plan Assessment and plan: 37-year-old pty-Lnmmfxs-wrxpmaei [place]ammarinese female brought in to the emergency department after she was found unresponsive at home Patient is psychotic, awake and alert, unable to get any history even in the presence of a location manager. Most of the history is obtained from review of ED note. No family member in the room. Patient will be admitted to ICU under 1013 due to intentional drug overdose and her present psychotic condition. Apparently patient does not have any history of depression but has been having marital problems and she intentionally ingested to full bottle of Benadryl and Motrin. Past History Past Medical History: No medical history Intentional drug overdose/ suicide attempt mental health consult appreciated Patient is under 1013 Hypokalemia, repleted Hyperglycemia due to stress reaction, a1c 5.6, DM ruled out Acute Toxic encephalopathy due to drug OD, now resolved major depression meds per MH Patient is medically optimized for transfer to inpatient psych hospital. History Interval history: per sitter, she cries for hours on end, but then smiles and acts happy when the doctors enter the room Review of systems Constitutional: No fevers, no malaise, no joint pains CVS: No chest pain, no orthopnea, no dyspnea on exertion, no pedal edema GI: No abdominal pain, no diarrhea, no vomiting, no constipation Respiratory: No shortness of breath, no wheezing, no coughing Hospitalist Physical - Physical exam Narrative exam: General.: Appears well, no distress, nontoxic HEENT: Moist mucous membranes, extraocular muscles intact, no lymphadenopathy Neck: supple Cardiac: S1-S2 heard Lungs: clear to auscultation bilaterally Abdomen: soft , nontender, nondistended, bowel sounds positive Extremities: no edema clubbing or cyanosis Skin: no rash or lesions Neurologic: no gross focal deficits Psych: unusually cheerful,, corporative, judgment intact - Constitutional Vitals: Temp Pulse Resp BP Pulse Ox 97.5 F L 67 16 95/54 97 02/19/18 06:40 02/19/18 06:40 02/19/18 06:40 02/19/18 06:40 02/19/18 06:40 General appearance: Present: no acute distress, well-nourished Results - Labs CBC & Chem 7: 02/17/18 07:59 02/17/18 07:59 Labs: Laboratory Last Values WBC 6.9 K/mm3 (4.5-11.0) 02/17/18 07:59 RBC 3.81 M/mm3 (3.65-5.03) 02/17/18 07:59 Hgb 11.4 gm/dl (10.1-14.3) 02/17/18 07:59 Hct 35.0 % (30.3-42.9) 02/17/18 07:59 MCV 92 fl (79-97) 02/17/18 07:59 MCH 30 pg (28-32) 02/17/18 07:59 MCHC 33 % (30-34) 02/17/18 07:59 RDW 14.8 % (13.2-15.2) 02/17/18 07:59 Plt Count 260 K/mm3 (140-440) 02/17/18 07:59 Lymph % (Auto) 30.1 % (13.4-35.0) 02/17/18 07:59 [place] % (Auto) 6.7 % (0.0-7.3) 02/17/18 07:59 Eos % (Auto) 1.6 % (0.0-4.3) 02/17/18 07:59 Baso % (Auto) 0.8 % (0.0-1.8) 02/17/18 07:59 Lymph # 2.1 K/mm3 (1.2-5.4) 02/17/18 07:59 [place] # 0.5 K/mm3 (0.0-0.8) 02/17/18 07:59 Eos # 0.1 K/mm3 (0.0-0.4) 02/17/18 07:59 Baso # 0.1 K/mm3 (0.0-0.1) 02/17/18 07:59 Seg Neutrophils % 60.8 % (40.0-70.0) 02/17/18 07:59 Seg Neutrophils # 4.2 K/mm3 (1.8-7.7) 02/17/18 07:59 Sodium 142 mmol/L (137-145) 02/17/18 07:59 Potassium 3.5 mmol/L (3.6-5.0) L 02/17/18 07:59 Chloride 108.3 mmol/L (98-107) H 02/17/18 07:59 Carbon Dioxide 24 mmol/L (22-30) 02/17/18 07:59 Anion Gap 13 mmol/L 02/17/18 07:59 BUN 8 mg/dL (7-17) 02/17/18 07:59 Creatinine 0.4 mg/dL (0.7-1.2) L 02/17/18 07:59 Estimated GFR > 60 ml/min 02/17/18 07:59 BUN/Creatinine Ratio 20 % 02/17/18 07:59 Glucose 96 mg/dL (65-100) 02/17/18 07:59 Hemoglobin A1c 5.6 % (4-6) 02/16/18 10:19 Calcium 8.2 mg/dL (8.4-10.2) L 02/17/18 07:59 HCG, Qual Negative (Negative) 02/15/18 23:45 Urine Color Yellow (Yellow) 02/15/18 23:47 Urine Turbidity Clear (Clear) 02/15/18 23:47 Urine pH 6.0 (5.0-7.0) 02/15/18 23:47 Ur Specific [place] 1.012 (1.003-1.030) 02/15/18 23:47 Urine Protein <15 mg/dl mg/dL (Negative) 02/15/18 23:47 Urine Glucose (UA) 150 mg/dL (Negative) 02/15/18 23:47 Urine Ketones Neg mg/dL (Negative) 02/15/18 23:47 Urine Blood Neg (Negative) 02/15/18 23:47 Urine Nitrite Neg (Negative) 02/15/18 23:47 Urine Bilirubin Neg (Negative) 02/15/18 23:47 Urine Urobilinogen < 2.0 mg/dL (<2.0) 02/15/18 23:47 Ur Leukocyte Esterase Neg (Negative) 02/15/18 23:47 Urine WBC (Auto) 1.0 /HPF (0.0-6.0) 02/15/18 23:47 Urine RBC (Auto) 4.0 /HPF (0.0-6.0) 02/15/18 23:47 U Epithel Cells (Auto) < 1.0 /HPF (0-13.0) 02/15/18 23:47 Urine Mucus Few /HPF 02/15/18 23:47 Salicylates < 0.3 mg/dL (2.8-20.0) L 02/15/18 23:45 Urine Opiates Screen Presumptive negative 02/15/18 23:47 Urine Methadone Screen Presumptive negative 02/15/18 23:47 Acetaminophen < 5.0 ug/mL (10.0-30.0) L 02/15/18 23:45 Ur Barbiturates Screen Presumptive negative 02/15/18 23:47 Ur Phencyclidine Scrn Presumptive negative 02/15/18 23:47 Ur Amphetamines Screen Presumptive negative 02/15/18 23:47 U Benzodiazepines Scrn Presumptive negative 02/15/18 23:47 Urine Cocaine Screen Presumptive negative 02/15/18 23:47 U Marijuana (THC) Screen Presumptive negative 02/15/18 23:47 Drugs of Abuse Note Disclamer 02/15/18 23:47 Plasma/Serum Alcohol 0.04 % (0-0.07) 02/15/18 23:45
[2018-02-20] MEDS: HEPARIN SUB-Q SCH ×3 (06:54→22:35)
--- NOTE | 2018-02-20 11:52 | Progress Note ---
Assessment and Plan - Intentional drug overdose/ suicide attempt mental health consulted and following Continue Zoloft Patient is under 1013 - Hypokalemia, repleted further. Check magnesium level. - Hyperglycemia due to stress reaction, a1c 5.6, DM ruled out - Acute Toxic encephalopathy due to drug OD, now resolved major depression Continue insulin per mental health provider Patient is medically optimized for transfer to inpatient psych hospital. Subjective Date of service: 02/20/18 Principal diagnosis: major depressive disorder, suicidal attempt Interval history: Patient seen and examined. Sitting quietly by the bedside. Denies any suicidal ideations. Review Laboratory and radiological data Objective - Exam Narrative Exam: Constitutional: Well-nourished well-developed. In no distress Head: Normocephalic atraumatic Eyes: Pupils are equal round and reactive to light Nose: No enlarged turbinates, no septal deviation. Mouth: Moist mucous membranes. Neck: Supple no thyromegaly. No bruit. No JVD Heart: Regular rate and rhythm, S1-S2 abnormal. No rubs murmurs or gallop Lungs: Clear to auscultation bilaterally no rales or rhonchi Abdomen: Soft, nontender. Bowel sound are present. Extremities: No edema no cyanosis and no clubbing. Neuro: Alert oriented Oriented x3. No focal sensory or motor deficit. Skin: No rashes no hyperemic spots Psychiatry: Denies any suicidal or homicidal ideation. No tactile, visual or auditory hallucination. Calm. Euthymic - Constitutional Vitals: Vital Signs - 12hr 02/20/18 00:00 Temperature 97.5 F L Pulse Rate 67 Respiratory 17 Rate Blood Pressure 104/68 O2 Sat by Pulse 96 Oximetry - Labs CBC & Chem 7: 02/17/18 07:59 02/17/18 07:59
--- NOTE | 2018-02-20 12:05 | Progress Note ---
Subjective - Reason for Consult Consult date: 02/20/18 Reason for consult: Psychiatric Follow-up Evaluation - Chief Complaint Chief complaint: "" Patient is a 37 yo female presenting to the hospital for overdosing on Ibuprofen and benadryl. The language line (ross furnace operator# [id number]) was used to interview the patient. Today the patient is calm and cooperative during the assessment. She stated feeling sad and hopeless for several months prior to her suicide attempt. She stated not being in a good place "mentally" when she ingested the medications (ibuprofen/benadryl). She stated that she is willing to take a "pill" for depression if it's needed. Per the sitter, the patient's had just left her room prior to my arrival. Also, the patient stated that she is communicating with about their marital issues. She denies SI /HI's and AVH's. Mental Status Exam - Vital signs Last Vital Signs Temp 97.5 F L 02/20/18 00:00 Pulse 67 02/20/18 00:00 Resp 17 02/20/18 00:00 BP 104/68 02/20/18 00:00 Pulse Ox 96 02/20/18 00:00 - Exam Narrative exam: Mental Status Exam: Appearance: calm, cooperative Behavior: regular eye contact Speech: regular rate and tone Mood: "okay" Affect: congruent to mood Thought Process: circumstantial Thought Content: denies SI/HI's and AVH's Motor Activity: ambulatory Cognition: A/O x 3 Insight: fair Judgment: fair Assessment and Plan Impression: MDD, Severe Type. Today the patient is calm and cooperative during the assessment. DDx: R/O PTSD Recommendation/Plan: Continue 1013 with placement to inpatient psy services. Start Zoloft 25 mg PO daily for depression. Discussed possible sucidality/ medication induced bowen with patient reference Zoloft.
[2018-02-20] MEDS: SODIUM CHLORIDE FLUSH SYRINGE 10 ML IV SCH ×2 (12:43→22:37)
[2018-02-20] MEDS: PROTONIX PO SCH (12:43)
[2018-02-20] MEDS: ZOLOFT PO SCH (12:47)
[2018-02-20] MEDS: K-DUR PO SCH (22:35)
[2018-02-21] MEDS: HEPARIN SUB-Q SCH ×3 (06:05→22:22)
[2018-02-21 10:07] LABS: Basophils # (Auto) 0.1 K/mm3 (0.0-0.1); Basophils % (Auto) 1.1 % (0.0-1.8); Eosinophils # (Auto) 0.2 K/mm3 (0.0-0.4); Eosinophils % (Auto) 3.4 % (0.0-4.3); Hematocrit 38.3 % (30.3-42.9); Hemoglobin 12.7 gm/dl (10.1-14.3); Lymphocytes # (Auto) 1.8 K/mm3 (1.2-5.4); Lymphocytes % (Auto) 26.4 % (13.4-35.0); Mean Corpuscular HGB Conc 33 % (30-34); Mean Corpuscular Hemoglobin 30 pg (28-32); Mean Corpuscular Volume 91 fl (79-97); Monocytes # (Auto) 0.4 K/mm3 (0.0-0.8); Monocytes % (Auto) 5.7 % (0.0-7.3); Platelet Count 281 K/mm3 (140-440); Red Blood Count 4.22 M/mm3 (3.65-5.03); Red Cell Distribution Width 14.7 % (13.2-15.2)
[2018-02-21] MEDS: PROTONIX PO SCH (10:08)
[2018-02-21] MEDS: K-DUR PO SCH (10:08)
[2018-02-21] MEDS: SODIUM CHLORIDE FLUSH SYRINGE 10 ML IV SCH ×2 (10:10→22:22)
[2018-02-21] MEDS: ZOLOFT PO SCH (10:26)
[2018-02-21 10:27] LABS: Alanine Aminotransferase 79 units/L (7-56); Albumin 4.2 g/dL (3.9-5); BUN/Creatinine Ratio 28; Blood Urea Nitrogen 11 mg/dL (7-17); Calcium 9.1 mg/dL (8.4-10.2); Hemolysis Index 33
--- NOTE | 2018-02-21 11:01 | Progress Note ---
Assessment and Plan - Intentional drug overdose/ suicide attempt Psych following Continue Zoloft Patient is under 1013 - Hypokalemia, Corrected - Hyperglycemia due to stress reaction, a1c 5.6, DM ruled out - Acute Toxic encephalopathy due to drug OD, now resolved Major depression Continue sertraline per mental health provider Patient is medically optimized for transfer to inpatient psych hospital. Subjective Date of service: 02/21/18 Principal diagnosis: major depressive disorder, suicidal attempt Interval history: Patient seen and examined. Denies suicidal or homicidal ideation. Objective - Constitutional Vitals: Vital Signs - 12hr 02/20/18 02/21/18 02/21/18 23:57 00:00 05:53 Temperature 98.2 F 98.2 F 98.1 F Pulse Rate 63 64 Respiratory 16 16 16 Rate Blood Pressure 99/54 92/59 Blood Pressure 99/54 [Left] O2 Sat by Pulse 97 99 Oximetry General appearance: Present: no acute distress, well-nourished - EENT Eyes: PERRL, EOM intact ENT: hearing intact, clear oral mucosa Ears: bilateral: normal - Neck Neck: supple, normal ROM - Respiratory Respiratory effort: normal Respiratory: bilateral: CTA - Breasts Breasts: deferred - Cardiovascular Rhythm: regular Heart Sounds: Present: S1 & S2. Absent: gallop, rub Extremities: pulses intact, No edema, normal color, Full ROM - Gastrointestinal General gastrointestinal: Present: soft, non-tender, non-distended, normal bowel sounds Rectal Exam: deferred - Genitourinary Female genitourinary: deferred - Integumentary Integumentary: clear, warm, dry - Musculoskeletal Musculoskeletal: strength equal bilaterally - Neurologic Neurologic: moves all extremities - Psychiatric Psychiatric: appropriate mood/affect, cooperative - Labs CBC & Chem 7: 02/21/18 09:12 02/21/18 09:12 Labs: Abnormal lab results 02/21/18 Range/Units 09:12 Creatinine 0.4 L (0.7-1.2) mg/dL AST 58 H (5-40) units/L ALT 79 H (7-56) units/L
[2018-02-22] MEDS: HEPARIN SUB-Q SCH ×2 (05:10→16:19)
--- NOTE | 2018-02-22 09:52 | Progress Note ---
Assessment and Plan - Intentional drug overdose with suicide attempt Psych following Continue Zoloft Patient is under 1013 - Hypokalemia, Corrected - Hyperglycemia due to stress reaction, a1c 5.6, DM ruled out - Acute Toxic encephalopathy due to drug OD, now resolved Major depression Continue sertraline per mental health provider Patient is medically cleared for transfer to inpatient psych hospital. Subjective Date of service: 02/22/18 Principal diagnosis: major depressive disorder, suicidal attempt Interval history: Patient seen and examined. Denies suicidal or homicidal ideation. Objective - Exam Narrative Exam: Constitutional: Well-nourished well-developed. In no distress Head: Normocephalic atraumatic Eyes: Pupils are equal round and reactive to light Nose: No enlarged turbinates, no septal deviation. Mouth: Moist mucous membranes. Neck: Supple no thyromegaly. No bruit. No JVD Heart: Regular rate and rhythm, S1-S2 abnormal. No rubs murmurs or gallop Lungs: Clear to auscultation bilaterally no rales or rhonchi Abdomen: Soft, nontender. Bowel sound are present. Extremities: No edema no cyanosis and no clubbing. Neuro: Alert oriented Oriented x3. No focal sensory or motor deficit. Skin: No rashes no hyperemic spots Psychiatry: Denies any suicidal or homicidal ideation. No tactile, visual or auditory hallucination. Calm. Euthymic - Constitutional Vitals: Vital Signs - 12hr 02/21/18 02/21/18 22:00 22:23 Temperature 98.4 F Pulse Rate 64 Respiratory 18 16 Rate Blood Pressure 99/60 O2 Sat by Pulse 96 Oximetry - Labs CBC & Chem 7: 02/21/18 09:12 02/21/18 09:12 Labs: Abnormal lab results 02/21/18 Range/Units 09:12 Creatinine 0.4 L (0.7-1.2) mg/dL AST 58 H (5-40) units/L ALT 79 H (7-56) units/L
[2018-02-22] MEDS: ZOLOFT PO SCH (10:49)
[2018-02-22] MEDS: PROTONIX PO SCH (10:49)
[2018-02-22] MEDS: SODIUM CHLORIDE FLUSH SYRINGE 10 ML IV SCH (10:49)
[2018-02-22] MEDS: K-DUR PO SCH (10:49)
--- NOTE | 2018-02-22 14:43 | Progress Note ---
Subjective - Reason for Consult Reason for consult: follow up - Chief Complaint Chief complaint: Patient was seen today. Patient denies suicidal thoughts. No intention plan. Patient notes that the previous attempt was impulsive and she had no intention plan of killing herself. Patient notes several things as reasons for living. Protective factors are her children and supportive family structure. Patient also notes her [employer] as protective factor. At the current time she is denying anhedonia, social isolation, persistent low sad mood. Patient does not have a sense of hopelessness. Patient is future oriented. Patient appears insightful about the situation led to hospitalization and she has adequately process this with her family and mental health providers in the hospital. The patient is agreeing to adhere to the medication regimen prescribed by the mental health services in order to ensure that symptoms of depression are well controlled and she is willing to follow-up with outpatient services as recommended. Consequently, the acute crisis leading to the hospitalization has abated and the patient is currently no longer a risk of harm to self. General Appearance: casually dressed, no acute distress Sensorium/Consciousness: alert and responding to external stimuli; clear Orientation: person, place, time and situation Eye Contact: good Attitude / Behavior: cooperaitve Psychomotor & Musculoskeletal Activity: WNL Mood: euthymic Affect: mood congruent Speech / Language: fluent, with normal rate/rhythm/tone Thought Processes: organized, logical, linear Thought Content: no SI/HI Perception: no AVH Insight: improved Judgement: fair Capacity for ADLs: independent Plan: rescind 1013 Continue sertraline 25 mg po qam Follow up at: [facility] in [place], [place] Address: [facility] [address], [place] [address] Mental Status Exam - Vital signs Last Vital Signs Temp 98.4 F 02/22/18 12:02 Pulse 86 02/22/18 12:02 Resp 18 02/22/18 12:02 BP 107/65 02/22/18 12:02 Pulse Ox 97 02/22/18 12:02
[2018-02-22 17:49] VITALS: BP 111/72
--- NOTE | 2018-02-22 18:07 | Discharge Summary ---
Providers - Providers Date of Admission: 02/16/18 03:49 Date of discharge: 02/22/18 Attending physician: KASEY LEONARD 02/16/18 17:06 Consult to Mental Health [CONS] Routine Reason For Exam: behavioral disturbance Place consult to:: norma/Cornelio Notified:: LLOYD Phone number called:: [phone] Was contact made?: Yes If yes, spoke with:: CORNELIO Time called:: 07:20 Primary care physician: [employer] Hospitalization Reason for admission: major depression with suicidal attempt by drug overdose Condition: Stable Pertinent studies: CT of the head that was normal Procedures: None Hospital course: 37-year-old [id number] [place] female brought in to the emergency department after she was found unresponsive at home Patient is psychotic, awake and alert, unable to get any history even in the presence of a herd tester. Most of the history is obtained from review of ED note. No family member in the room. Patient will be admitted to ICU under 1013 due to intentional drug overdose and her present psychotic condition. Apparently patient does not have any history of depression but has been having marital problems and she intentionally ingested full bottle of Benadryl and Motrin. On admission patient had hypokalemia with a potassium of 3.2. Blood sugar was elevated to 173. A1c was 5.6. Urine drug screen was negative. Potassium was supplemented. Patient continued to be on 1013. However she became very a lot cough receive vocalizing that she never has any intention to hurt as available. Psych consult was obtained on admission. If related to patient. After 6 days of observing patient's behavior on the floor psychiatric decided that 1013 should be recent. Patient is being discharged today to follow primary care physician as well as psychiatrist interested to 3-5 days and 2 weeks respectively Disposition: DC-01 TO HOME OR SELFCARE Time spent for discharge: 35 min - Discharge Diagnoses (1) Acute encephalopathy Status: Acute (2) Diphenhydramine overdose Status: Acute (3) Hyperglycemia Status: Acute (4) Hypokalemia Status: Acute (5) Ibuprofen overdose Status: Acute (6) Intentional drug overdose Status: Acute Qualifiers: Encounter type: initial encounter Qualified Code(s): T50.902A - Poisoning by unspecified drugs, medicaments and biological substances, intentional self- harm, initial encounter Core Measure Documentation - Palliative Care Palliative Care/ Comfort Measures: Not Applicable - Core Measures Any of the following diagnoses?: none Exam - Physical Exam Narrative exam: Constitutional: Well-nourished well-developed. In no distress Head: Normocephalic atraumatic Eyes: Pupils are equal round and reactive to light Nose: No enlarged turbinates, no septal deviation. Mouth: Moist mucous membranes. Neck: Supple no thyromegaly. No bruit. No JVD Heart: Regular rate and rhythm, S1-S2 abnormal. No rubs murmurs or gallop Lungs: Clear to auscultation bilaterally no rales or rhonchi Abdomen: Soft, nontender. Bowel sound are present. Extremities: No edema no cyanosis and no clubbing. Neuro: Alert oriented Oriented x3. No focal sensory or motor deficit. Skin: No rashes no hyperemic spots Psychiatry: Denies any suicidal or homicidal ideation. No tactile, visual or auditory hallucination. Calm. Euthymic - Constitutional Vitals: Temp Pulse Resp BP Pulse Ox 98.2 F 77 18 111/72 99 02/22/18 17:39 02/22/18 17:39 02/22/18 17:39 02/22/18 17:39 02/22/18 17:39 Plan Activity: advance as tolerated Weight Bearing Status: Weight Bear as Tolerated Diet: regular Follow up with: PRIMARY CARE, [Primary Care Provider] - 7 Days Prescriptions: Butalb/Acetamin/Caff 50-325-40 [Fioricet] 2 tab PO Q4H PRN #30 tablet PRN Reason: Headache Sertraline [Zoloft] 25 mg PO QDAY #30 tablet
== END 2018-02-22 19:12 | disposition home or self-care (01) | DRG 917 ==
LOC: ED 23:18 → CC1 02-16 03:49 → 3A 02-16 22:14
PROVIDERS: ADMIT Internal Medicine; ATTEND Family Medicine
DX: T45.0X2A Poisoning by antiallergic and antiemetic drugs, intentional self-harm, initial encounter (principal); G92 Toxic encephalopathy; R73.9 Hyperglycemia, unspecified; E87.6 Hypokalemia; T39.312A Poisoning by propionic acid derivatives, intentional self-harm, initial encounter; F32.9 Major depressive disorder, single episode, unspecified; Y92.89 Other specified places as the place of occurrence of the external cause
CPT/HCPCS: 36415; 70450; 80048; 80053; 80307; 80320; 81001; 83036; 83735; 84703; 85025; 90715; 93005; 93010; A6250; G0480; J1644; J2060; J7030; J7042